=== PATIENT | female | born 1965 | race Caucasian/White ===

== ENCOUNTER 2025-05-16 10:24 | Outpatient (CLI) | payer BC | END 2025-05-16 10:25 | disposition home or self-care (01) | LOC: CSHMAMMO 10:24 | PROVIDERS: ATTEND Surgery | DX: C50.912 Malignant neoplasm of unspecified site of left female breast (principal) | CPT/HCPCS: 19083; 96372; A4648; A9697 ==

== ENCOUNTER 2025-05-16 11:40 | Outpatient (CLI) | payer BC ==
[2025-05-16 12:21] LABS: #Basophils 0.04 10x3/uL (0.0-0.2); #Eosinophils 0.07 10x3/uL (0.0-0.5); #Monocytes 0.38 10x3/uL (0.0-1.1); #Neutrophils 2.87 10x3/uL (1.5-8.4); %Basophils 0.7 % (0.0-2.0); %Eosinophils 1.2 % (0.0-6.0); %Lymphocytes 41.2 % (18.0-47.0); %Monocytes 6.7 % (0.0-10.0); %Neutrophils 50.2 % (40.0-75.0); Hematocrit 42.2 % (34.9-44.5); Hemoglobin 13.8 g/dL (12.0-15.5); Mean Corpuscular Hemoglobin 31.2 pg (27.0-33.0); Mean Corpuscular Volume 95.5 fL (81.6-98.3); Platelet Count 240 10x3/uL (150-450); Red Blood Cell (RBC) Count 4.42 10x6/uL (3.90-5.03); White Blood Cell (WBC) Count 5.71 10x3/uL (3.5-10.5)
[2025-05-16 12:35] LABS: Anion Gap 13 mmol/L (10-20); BUN (Urea Nitrogen) 11 mg/dL (9.8-20.1); Calc. Creatinine Clearance 0 mL/min (70-130); Calcium 9.2 mg/dL (7.8-10.44); Carbon Dioxide 27 mmol/L (22-29); Chloride 105 mmol/L (98-107); Glucose 102 mg/dL (70-105); Potassium 4.3 mmol/L (3.5-5.1); Sodium 141 mmol/L (136-145)
== END 2025-05-16 11:41 | disposition home or self-care (01) ==
LOC: CSHLAB 11:40
PROVIDERS: ATTEND Surgery
DX: Z01.818 Encounter for other preprocedural examination (principal); C50.912 Malignant neoplasm of unspecified site of left female breast
CPT/HCPCS: 80048; 85025; 93005; 93010

== ENCOUNTER 2025-05-30 05:32 | Day surgery (SDC) | payer BC ==
[2025-05-16 12:00] VITALS: BMI 25.7
[2025-05-30] MEDS ORDERED: PROPOFOL 20 ML ONE (07:37)
[2025-05-30] MEDS ORDERED: Bupivacaine HCl 0.5%/Epinephrine 1:200,000/PF 30 ml Vial ONE (07:37)
[2025-05-30] MEDS ORDERED: Methylergonovine 0.2 MG/ML VIAL ONE (07:38)
[2025-05-30] MEDS ORDERED: Ferric Subsulfate 8 ML TOPICAL SOLN ONE (07:38)
[2025-05-30] MEDS ORDERED: Lidocaine 1% w/Epinephrine 1:200K 30 ML VIAL ONE (07:38)
[2025-05-30] MEDS ORDERED: Potassium Iodide Solution 14 ML BOT ONE (08:18)
[2025-05-30] MEDS ORDERED: Ondansetron PF 4 MG/2 ML Vial ONE (08:35)
[2025-05-30] MEDS ORDERED: Ketorolac Tromethamine 30 MG (1 mL) VIAL ONE (09:42)
== END 2025-05-30 11:55 | disposition home or self-care (01) ==
LOC: CSHSDC 05:32
PROVIDERS: ATTEND Surgery
PROC: 0HBU0ZZ Excision of Left Breast, Open Approach (ICD-10-PCS; principal; 2025-05-30)
PROC: 0UBC7ZX Excision of Cervix, Via Natural or Artificial Opening, Diagnostic (ICD-10-PCS; principal; 2025-05-30)
DX: R87.612 Low grade squamous intraepithelial lesion on cytologic smear of cervix (LGSIL) (principal); C50.312 Malignant neoplasm of lower-inner quadrant of left female breast; J45.909 Unspecified asthma, uncomplicated; Z88.0 Allergy status to penicillin; Z88.2 Allergy status to sulfonamides; Z17.31 Human epidermal growth factor receptor 2 positive status; Z91.018 Allergy to other foods
CPT/HCPCS: 76098; 88307; J1100; J1885; J2210; J2405; J2704; J3010; J3490; Q9968